=== PATIENT | female | born 1970 | race Caucasian/White ===

== ENCOUNTER 2019-07-11 23:21 | Emergency (ER) | payer BC, SELFPAY ==
[2019-07-11 23:22] VITALS: BP 161/112; PULSE 90; RESP 16; TEMP 36.7; O2SAT 96; BMI 30.5
--- NOTE | 2019-07-12 00:48 | ED.VIS.GEN ---
History of Present Illness Chief Complaint: Rash Narrative: Patient is a 49-year-old female who presents with a rash. It began today. She has a red raised pruritic rash on her neck and extremities. She was seen at an outside hospital earlier today told she was having allergic reaction and prescribed prednisone and Pepcid. She states her symptoms of worsened. No chest pain shortness of breath nausea vomiting. She cannot identify any new exposures to foods, lotions, detergents, medications. Past Medical History - Allergies and Home Meds Allergies/Adverse Reactions: Allergies No Known Allergies Allergy (Verified 07/11/19 23:25) Primary Care Physician: NOT,DEFINED [Primary Care Provider] - Past Medical History: None Smoking Status: Current every day smoker Review of Systems All systems negative except as indicated General: Denies: Fever Cardiovascular: Denies: Chest pain Respiratory: Denies: Dyspnea Gastrointestinal: Denies: Nausea, Vomiting Skin: Reports: Rash Physical Exam Vital Signs/Narrative: Vital Signs Temp Pulse Resp BP Pulse Ox 07/11/19 23:22 98.0 F 90 16 161/112 H 96 Inital Vital Signs reviewed: Yes General: Well nourished Head: Normocephalic Eyes: EOMI ENT: Moist mucous membranes Neck: Supple Cardiovascular: Regular rate Respiratory: No distress Skin: - - Urticaria Neurological: Alert Psychological: Normal affect Diagnostic/Tx/Re-eval - Medical Decision Making Patient presents with urticaria. She was only prescribed 40 mg of prednisone. We will increase this to 60. She was also given Benadryl here. She was advised to follow-up as an outpatient. She understands to return for new or worsening symptoms. She was discharged. ED Disposition - Plan for ED Patient: Disposition: Home or Assisted Living Diagnosis: Urticaria Instructions: Hives Prescriptions: predniSONE tablet 60 mg PO DAILY #15 tab Prescription Printed Referrals: NOT,DEFINED [Primary Care Provider] -
[2019-07-12] MEDS: predniSONE 20 MG Tablet PO (01:01)
[2019-07-12] MEDS: DiphenhydrAMINE 25 MG Capsule 50 MG PO (01:01)
[2019-07-12 01:25] VITALS: BP 151/101; PULSE 94; RESP 16; O2SAT 97
== END 2019-07-12 01:31 | disposition home or self-care (01) ==
LOC: ED 07-12 01:08
PROVIDERS: Emergency Provider Emergency Medicine
DX: L50.9 Urticaria, unspecified (principal); F17.200 Nicotine dependence, unspecified, uncomplicated
CPT/HCPCS: 99283

== ENCOUNTER 2019-07-16 20:00 | Emergency (ER) | payer BC, SELFPAY ==
[2019-07-16 20:01] VITALS: BP 155/81; PULSE 79; RESP 18; TEMP 36.4; O2SAT 97; BMI 47.8
--- NOTE | 2019-07-16 20:54 | ED.DCSUM_ITS ---
- ER Visit Summary Date of Service: 07/16/19 Chief Complaint: Rash History of Present Illness: The patient is a 49 F with a rash to her body and arms. She was treated with prednisone, Pepcid, and Benadryl. She is not improving. She does not have a PCP currently. She is not sure, but thinks she was exposed to something at work. No fever or systemic symptoms. No significant past medical history. Physical Examination: Patient has erythematous wheals to her arms, body, neck. No skin peeling or necrosis. Mucous membranes normal. Eyes normal. Afebrile and vital signs unremarkable. Test Results: None indicated Emergency Department Course and Treatment: Patient has urticaria. I am not sure what is causing her reaction. Will treat with additional steroids. Continue Benadryl and Pepcid. She was advised that she may need biopsy or testing for systemic disease if she has any other new symptoms or abnormal findings. We will refer her for primary care follow-up. Return for any new or worsening issues. Treatment Plan: As above Disposition: Discharge Impression: 1. Urticaria This note was generated with [employer]zzle dictation software. It may contain incorrect words, spelling, and punctuation that were not noted in review of the chart prior to signing ED Disposition - Plan for ED Patient: Disposition: Home or Assisted Living Instructions: [place] Prescriptions: MethylPREDNISolone DosePak [Medrol DosePak] 4 mg PO UD #1 box Prescription Printed Referrals: Julissa Galindo [NON-STAFF] -
[2019-07-16 21:16] VITALS: RESP 16
== END 2019-07-16 21:17 | disposition home or self-care (01) ==
LOC: ED 20:25
PROVIDERS: Emergency Provider Emergency Medicine
DX: L50.9 Urticaria, unspecified (principal)
CPT/HCPCS: 99282

== ENCOUNTER 2019-07-17 03:00 | Emergency (ER) | payer BC, SELFPAY ==
[2019-07-16 20:01] VITALS: BMI 47.8
[2019-07-17 03:01] VITALS: BP 163/98; PULSE 109; RESP 18; TEMP 36.7; O2SAT 98; BMI 48.8
--- NOTE | 2019-07-17 03:17 | ED.VIS.GEN ---
History of Present Illness Chief Complaint: Complaint Narrative: Patient is a 49-year-old female who presents with dysuria and urinary frequency and urgency. The symptoms just began tonight. She has recently been seen multiple times for urticaria of uncertain etiology and has been treated with steroids and antihistamines. She denies any fevers vomiting abdominal pain. Past Medical History - Allergies and Home Meds Allergies/Adverse Reactions: Allergies No Known Allergies Allergy (Verified 07/17/19 03:01) Primary Care Physician: Care Physician,No Primary [Primary Care Provider] - Past Medical History: None Smoking Status: Never smoker Review of Systems All systems negative except as indicated General: Denies: Fever Cardiovascular: Denies: Chest pain Respiratory: Denies: Dyspnea Gastrointestinal: Denies: Vomiting Genitourinary: Reports: Dysuria, Frequency Skin: Reports: Rash Physical Exam Vital Signs/Narrative: Vital Signs Temp Pulse Resp BP Pulse Ox 07/17/19 03:01 98.0 F 109 H 18 163/98 H 98 Inital Vital Signs reviewed: Yes General: Well nourished Head: Normocephalic Eyes: EOMI ENT: Moist mucous membranes Neck: Supple Cardiovascular: - - Heart is regular tachycardia Respiratory: No distress, CTA bilaterally Abdomen: Soft, Nontender Skin: Rash - Urticarial Neurological: Alert Psychological: - - Anxious Diagnostic/Tx/Re-eval Laboratory Results 07/17/19 03:12 Urine Color Yellow Urine Clarity Sl. Cloudy Urine pH 6.0 Ur Specific [place] 1.015 Urine Protein 15 H Urine Glucose (UA) Normal Urine Ketones Negative Urine Occult Blood 250 H Urine Nitrite Positive H Urine Bilirubin Negative Urine Urobilinogen Normal Ur Leukocyte Esterase 500 H Urine RBC 0-5 SEEN Urine WBC 25-50 SEEN Ur Squamous Epith Cells 0-5 SEEN Urine Bacteria 2+ Urine Mucus 0 SEEN - Medical Decision Making UA as above is consistent with cystitis. Patient was treated with Bactrim and given first dose here. I also added on a culture. Patient advised to follow-up as an outpatient otherwise to return for new or worsening symptoms and was discharged home. ED Disposition - Plan for ED Patient: Disposition: Home or Assisted Living Diagnosis: Cystitis Instructions: Bladder Infection, Female (Adult) Prescriptions: Smz/Tmp Ds [Bactrim Ds] 1 tab PO BID #5 tab Prescription Printed Referrals: Care Physician,No Primary [Primary Care Provider] -
[2019-07-17 03:19] LABS: Color, Urine Yellow (Yellow); Glucose, Dipstick Normal (Normal); Ketone-Dipstick Negative (Negative); Leukocyte Esterase-Dipstick 500 /ul (Negative); Nitrite-Dipstick Positive (Negative); Occult Blood-Urine 250 /ul (Negative); Protein-Dipstick 15 mg/dl (Negative); Specific Gravity, Urine 1.015 (1.002-1.030); Urine Bilirubin Dipstick Negative (Negative); Urine Clarity Sl. Cloudy (Clear); Urine Urobilinogen Normal (Normal)
[2019-07-17 03:20] LABS: Mucous, Urine 0 SEEN /hpf (<or=2+)
[2019-07-17 03:25] LABS: White Blood Cells 25-50 SEEN /hpf (0-5)
[2019-07-17 03:26] LABS: Bacteria 2+ /hpf (None Seen); Red Blood Cells-Urine 0-5 SEEN /hpf (0-5); Squamous Epithelial Cells - UA 0-5 SEEN /hpf (5-10)
[2019-07-17] MEDS: Smz/Tmp Ds Tablet 1 TABLET PO (03:37)
[2019-07-17 03:43] VITALS: RESP 16
== END 2019-07-17 03:44 | disposition home or self-care (01) ==
PROVIDERS: Emergency Provider Emergency Medicine
DX: N30.90 Cystitis, unspecified without hematuria (principal)
CPT/HCPCS: 81001; 87086; 87088; 87186; 99283

== ENCOUNTER 2020-01-23 05:51 | Emergency (ER) | payer OTHER, SELFPAY ==
[2020-01-23 05:52] VITALS: BP 156/87; PULSE 112; RESP 16; TEMP 36.8; O2SAT 96; BMI 49.4
--- NOTE | 2020-01-23 06:40 | ED.DCSUM_ITS ---
History of Present Illness Chief Complaint: Allergic Reaction Informant: Patient Onset: Yesterday Context: Gradual Onset Timing: Intermittent Quality: pruritic, swollen, red. not painful. Location: back, neck, shoulders, chest, arms, thighs Current Severity: Moderate Maximum Severity: Moderate Worsened by: nothing Relieved by: bendaryl, some Narrative: Patient started getting urticaria yesterday, the eased off and then returned this morning. She thought that since they were coming towards the front of her neck that might give her trouble breathing although she has not had any so she came to the ER. She has had unexplained urticaria off and on since July of last year. She does not know what she is reacting to. She takes no prescriptions and has had no recent [id number] medications. No new topicals. No new soaps or shampoos. Past Medical History - Allergies and Home Meds Allergies/Adverse Reactions: Allergies No Known Allergies Allergy (Verified 01/23/20 05:55) Primary Care Physician: Ravinder Carty MD [Primary Care Provider] - Past Medical History: None Smoking Status: Current every day smoker Review of Systems General: Denies: Chills, Fever, Sweats Eyes: Denies: Visual changes - bilaterally, Diplopia ENT: Denies: Bilateral ear pain, Rhinorrhea, Sore throat Cardiovascular: Denies: Chest pain, Palpitations Respiratory: Denies: Dyspnea, Cough, Dyspnea on exertion, Orthopnea Gastrointestinal: Denies: Abdominal pain, Nausea, Vomiting, Diarrhea, Melena, Hematochezia Genitourinary: Denies: Dysuria, Hematuria, Frequency Musculoskeletal: Denies: Neck pain, Back pain, Extremity Pain Skin: Reports: Rash. Denies: Wounds Neurological: Denies: Headache, Weakness, Numbness Physical Exam Vital Signs/Narrative: Vital Signs Temp Pulse Resp BP Pulse Ox 01/23/20 05:52 98.2 F 112 H 16 156/87 H 96 Inital Vital Signs reviewed: Yes General: Well nourished, Well developed, Obese, No Acute Distress Head: Normocephalic, Atraumatic Eyes: Perrl, EOMI ENT: Moist mucous membranes, No rhinorrhea Neck: Supple, Nontender, No lymphadenopathy Cardiovascular: Regular rate, Regular rhythm, No murmurs Respiratory: No distress, CTA bilaterally, Chest nontender. Negative for: Wheezing Extremities: Nontender, No edema Skin: Normal color, Rash - scattered urticaria, mostly on back and shoulders, large; few on chest and UEs, smaller. not target lesions. nontender. no petechiae/purpura. Neurological: Alert, Oriented x3, Cranial nerves II-XII grossly intact, Normal Strength, Normal Sensation, Normal Gait Psychological: Normal affect, Normal Mood Diagnostic/Tx/Re-eval - Medical Decision Making Her lungs are clear and her exam is benign except for the urticaria. She has no stridor and her posterior oropharynx is clear. No signs of edema. Normal vital signs, no signs of anaphylaxis. Will place her on prednisone and advised that she follow-up with her doctor as that since she has been having episodes in July she may need referral to an intelligent systems engineer. ED Disposition - Plan for ED Patient: Disposition: Home or Assisted Living Diagnosis: Allergic urticaria Instructions: ALLERGIC REACTION, Other (General) Prescriptions: Prednisone 10 mg PO UD #33 tab Prescription Printed Referrals: Ravinder Carty MD [Primary Care Provider] - 1-2 Weeks
[2020-01-23] MEDS: predniSONE 20 MG Tablet 40 MG PO (06:52)
[2020-01-23 06:53] VITALS: BP 148/69; PULSE 90; RESP 18; O2SAT 97
== END 2020-01-23 06:54 | disposition home or self-care (01) ==
PROVIDERS: Emergency Provider Emergency Medicine; PCP Family Medicine
DX: L50.0 Allergic urticaria (principal); F17.200 Nicotine dependence, unspecified, uncomplicated; E66.9 Obesity, unspecified
CPT/HCPCS: 99283

== ENCOUNTER 2022-11-14 08:59 | Day surgery (SDC) | payer OTHER, SELFPAY ==
[2022-11-14] VITALS (8 sets, daily range): BP systolic 111–164; BP diastolic 75–92; PULSE 63–96; RESP 16–18; TEMP 36.6–37.1; O2SAT 93–100; BMI 48.1
--- NOTE | 2022-11-14 | AXNB_PTH ---
PATIENT: CECILY DASH LOC: [facility] [place] U#:[id number] AGE/SX: 52/F ROOM: RE11/14/[address]: Dr. Olga Arora MD : 1970 BED: DIS: 11/14/2022 SPEC #: [id number] RECD: 11/14/22 13:14 STATUS: DENISE RE #: [id number] NICANOR: 11/14/22 00:[address]: Olga Arora DEPT: SURGICAL PATHOLOGY RECD BY: Gardenia Pittman Tissues: A - Axillary lymph node, NOS B - Left breast, NOS C - Left breast, NOS Procedures: Frozen Section (charge) Frozen Section Add'l ([facility]) Surgery Specimen Level IV Surgery Specimen Level V HEADER OPERATION: Left breast lumpectomy via wire localization, sentinel lymph node biopsy, frozen section PRE-OP DIAGNOSIS: Left breast cancer TISSUE SUBMITTED: A - [place] lymph nodes left breast, FS, B - Left breast mass, two short sutures - anterior border, one long suture - posterior border, wire - lateral, C - Additional left breast mass - medial margin - suture hall tumor FROZEN SECTION DIAGNOSIS A. Left sentinel lymph nodes, biopsy: Five out of six lymph nodes, positive for metastatic carcinoma. : 11/14/2022 MICROSCOPIC DIAGNOSIS A. Left breast sentinel lymph nodes, biopsy: Five out of six lymph nodes, positive for metastatic carcinoma. See comment. B. Left breast mass, lumpectomy with needle localization: Invasive ductal carcinoma. See cancer summary in comment section. C. Additional left breast mass, medial margin: Negative for carcinoma. :jose 11/21/2022 COMMENT A. The largest focus of metastasis measures 2.5 cm in greatest dimension. Focal extranodal extension is noted measuring 0.3 cm in greatest dimension. One lymph node (block # 6, 16-18)) is negative for metastatic carcinoma immunohistochemical stains for cytokeratins ([id number]). B. INVASIVE BREAST CANCER SUMMARY: Procedure - excision with needle localization Specimen laterality - left Tumor site ? not specified Tumor size ? 3.5 x 3.5 x 2.5 cm Histologic type - invasive ductal carcinoma, no special type. Histologic Grade (Eudora grade): Glandular/tubular differentiation - score 3 Nuclear pleomorphism - score 3 Mitotic count ? score 3 Overall grade - 3 (score of 9) Tumor Focality - single focus of invasive carcinoma. 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 Size (extensive of DCIS) ? DCIS comprises <1% of the total tumor volume. Number of blocks with DCIS ? 1 Number of blocks examined ? 20 (specimen B & C) Architectural pattern - solid Nuclear grade ? grade 3 (high) Necrosis ? not present Lobular carcinoma in situ (LCIS) ? not identified Tumor extension: Skin ? skin is present and uninvolved. Nipple ? not applicable Skeletal muscle ? no skeletal muscle present. Margins: Invasive carcinoma margin ? uninvolved by invasive carcinoma. The tumor is 0.8 cm away from the closest medial margin in lumpectomy specimen and additional specimen medial margin measures 1.5 cm which is negative for carcinoma. Ductal carcinoma in situ margin ? cannot be assessed as it is present in the contact center representative section. Margins are free of DCIS. Regional Lymph nodes: Total number of lymph nodes examined - 6 Number of sentinel lymph nodes examined - 6 Number of lymph nodes with macrometastases - 5 Number of lymph nodes with micrometastases and isolated tumor cells - 0 Size of largest metastatic deposit ? 2.5 cm Extranodal extension ? present, about 3 mm Treatment effect - no known presurgical therapy. Lymphvascular invasion ? not identified Dermal lymphvascular invasion - not identified Distant metastasis ? not applicable Additional pathologic findings ? fibrocystic changes and intraductal hyperplasia without atypia. Ancillary studies - previously performed at [facility] [place] ([id number]). ER ? positive (91-100%, strong intensity) [place] ? positive (71-80%, weak to moderate intensity) Her2 pete ? negative (0) Ki- 67 ? positive (45%) ([id number]) Microcalcifications ? not identified Clinical history - Please make reference to previous specimens from [facility] [place] ([id number]) left breast, core biopsy with diagnosis of ?invasive ductal carcinoma with associated marked lymphocytic infiltrates? and ([id number]) left axillary lymph node, biopsy with diagnosis of ?metastatic carcinoma involving lymph node, consistent with a breast primary.? PATHOLOGIC STAGE: pT2 pN2a pMx The above summary is in compliance with [employer] (CAP) Cancer Protocols Checklist and [place] Joint Committee on Cancer (AJCC), Staging Manual, 8th Ed. Case has been reviewed in consultation with Dr. Clinton who concurs with the above diagnosis. IDC:AM MICROSCOPIC DESCRIPTION Slides are reviewed. GROSS DESCRIPTION A - Received fresh for frozen section diagnosis labeled with the patient's name is a specimen designated left sentinel lymph node. The specimen consists of multiple pieces of dalton nodule that in aggregate measure 6 x 6 x 2.5 cm. Six nodules consistent with lymph nodes are identified. The largest lymph node measures 3 cm in greatest dimension. One section from each lymph node are submitted for frozen section diagnosis in one cassette. The rest of the lymph node tissue is submitted as follows: 7 - rest of the specimen from #1 lymph node, 8 - rest of the lymph node from #2 lymph node, 9 & 10 - rest of the lymph node from #3 lymph node, 11 & 12 - rest of the lymph node from #4 lymph node, 13-15 - rest of the lymph node from #5 lymph node, 16-18 - rest of the lymph node from #6 lymph node. / WALLACE:jose 11/14/2022 B - Received fresh for intraoperative consultation labeled with the patient's name is a specimen designated left breast mass. The specimen consists of a piece of fibroadipose tissue with needle localization measuring 8 x 7 x 6 cm. A piece of skin is noted laterally measuring 2 x 0.2 cm. The specimen is oriented as follows: two short sutures - anterior border, one long suture - posterior border, wire - lateral. The specimen is inked as follows: anterior - yellow, posterior - black, superior - blue, inferior - green, medial - red and lateral - orange. Serial sections reveal a dalton, indurated tumor mass measuring 3.5 x 3.5 x 2.5 cm. This mass is 0.8 cm away from the medial margin. This information is conveyed to the surgeon intraoperatively. Sections of the rest of the specimen reveal dalton-yellow adipose cut surfaces mixed with dalton-white fibrous areas. Assistant Teacher Primary sections are submitted in 12 cassettes as follows: 1 - perpendicular anterior, posterior and superior margin, 2 - perpendicular lateral margin including skin and perpendicular inferior margin, 3 - perpendicular medial margin, 4-7 - tumor, 8-12 - Assistant Teacher Primary sections adjacent to and away from the tumor. Sections are submitted after additional fixation. Jose 11/15/2022 C - Received in fixative is one container labeled with the patient's name and designated additional left breast mass, medial margin. The specimen consists of a piece of fibroadipose tissue measuring 4.5 x 4 x 1.5 cm. A suture is noted marking tumor. Suture surface is inked black and opposite surface is inked blue. No mass lesion is identified. The specimen is submitted in eight cassettes from one end to another end. / Jose 11/15/2022 TC:0 CPT: 23907 x2, 61756, 37469, 59661 x5
--- NOTE | 2022-11-14 | IMM_PTH ---
PATIENT: CECILY DASH LOC: [facility] – [place] U#:[id number] AGE/SX: 52/F ROOM: RE11/14/[address]: Dr. Olga Arora MD : 1970 BED: DIS: 11/14/2022 SPEC #: [id number] RECD: 11/17/22 12:43 STATUS: DENISE REQ #: [id number] NICANOR: 11/14/22 00:[address]: Olga Arora DEPT: IMMUNOHISTOCHEMISTRY RECD BY: Gardenia Pittman Tissues: A - Axillary lymph node, NOS B - Left breast, NOS Procedures: CK7 (add) Pankeratin (initial) Pankeratin (add) KI-67 (initial) PHYSICIAN & INSTITUTION [place] [id number] SPECIMEN INFORMATION: Tissue Source: A ? Left sentinel lymph nodes, B - Left breast mass, lumpectomy with needle localization Clinical Info: Left breast cancer Specimen Number: [id number] A6, A16, A17 & A18, B5 CPT code: 58791 x2, 90101 x7 METHODOLOGY: Deparaffinized sections of prefer/formalin-fixed tissue or PAP/DQ stained slides are incubated with monoclonal/polyclonal antibodies/oligonucleotide probes. Localization is made via biotin free immunoperoxidase method. Appropriate controls are performed and reacted as expected. Results on target cell population are indicated in the following table: RESULTS: ANTIBODY / CLONE RESULT Block A6 AE1-3 (AE1/AE3/PCK26) negative CK7 (OV-TL12/30) negative Block A16 AE1-3 (AE1/AE3/PCK26) negative CK7 (OV-TL12/30) negative Block A17 AE1-3 (AE1/AE3/PCK26) negative CK7 (OV-TL12/30) negative Block A18 AE1-3 (AE1/AE3/PCK26) negative CK7 (OV-TL12/30) negative Block B5 Ki-67 (30-9) positive, ~45% These tests were developed and their performance characteristics determined by [facility]. They may not have been cleared or approved by the U.S. Food and Drug Administration. The FDA has determined that such clearance or approval is not necessary. The above immunohistochemical/dualISH markers are ordered and reviewed by the Pathologist. INTERPRETATION: A. Left sentinel lymph nodes, biopsy: One lymph node, negative for metastatic carcinoma. B. Left breast mass, lumpectomy with needle localization: Invasive ductal carcinoma. SJ:jose 11/21/2022
--- NOTE | 2022-11-14 09:15 | NM_ITS ---
PROCEDURE: NUCLEAR MEDICINE Injection Nelson Node - LEFT breast(s). REASON FOR EXAM: Female, 52 years old. Left breast cancer. TECHNIQUE: Nelson node localization using radionuclide methods of the LEFT breast(s) was performed following subcutaneous administration of 1.1 mCi of of sulfur colloid Tc-99m. FINDINGS: 1.1 mCi of senior wind turbine technician labeled sulfur colloid was injected subcutaneously in the periareolar region in 4 equal aliquots. NM/Lymph Node Injection Only IMPRESSION: 1.1 mCi of technetium labeled sulfur colloid was injected subcutaneously in the periareolar region in 4 equal aliquots for sentinel node imaging. Electronically Signed: Hayden Sue MD at 14:50 EST ,
[2022-11-14] MEDS: Lactated Ringers 1,000 ML 15 ML IV (09:22)
--- NOTE | 2022-11-14 11:28 | BI_ITS ---
SURGICAL BREAST SPECIMEN RADIOGRAPH CLINICAL: Document presence of mass in biopsy specimen. FINDINGS: Specimen shows presence of mass. Electronically Signed: Hayden Sue MD at 14:49 EST , BI/Breast Biopsy Specimen IMPRESSION: undefined
--- NOTE | 2022-11-14 12:07 | OP.PCM_ITS ---
Report of Operation Date of Procedure: 11/14/22 Pre-Operative Diagnosis: left breast cancer Post-Operative Diagnosis: same Surgery/Procedure Performed:: left breast lumpectomy, left axillary lymph node dissection Description of Surgical Findings:: multiple large palpable lymph nodes of left axilla Surgeon: Olga Arora Type of Anesthesia: General Anesthesiologist: Roshni Haddad Specimen's removed: left breast lumpectomy, left axillary lymph giovanny tissue Drains: none Estimated Blood Loss (mL): 150 Fluids Replaced: 1300 ml RL Description of Procedure: After informed consent was given, the patient was brought into the Breast Stereotactic Radiology suite. Appropriate time out protocol was followed. The patient was then placed in the prone position on the Dunn stereotactic table. The patient?s left breast was placed in the opening at the head of the table. A mash tub cooker operator compression mammogram was then obtained in the lateral view. The marker clip that was previously placed was identified. Stereo pictures of the lesion were then taken for XYZ coordinates. The Kopans needle was then positioned where it would be entering into the patient?s breast. The skin at this site was then cleansed with a surgical skin preparation. The skin and subcutaneous tissues at this site were then infiltrated with 1% xylocaine. The Kopans needle was then positioned into the patient?s breast at the proper coordinates of depth. A mash tub cooker operator film was obtained which revealed the wire in proper position. The patient was then placed in the supine position and the wire was taped into place. A unilateral mammogram in the CC and MLO view were then taken for use in the OR. The patient tolerated this portion of the procedure well and was brought to the AC awaiting surgery in the OR. Element Response Options Operation performed with curative intent. No. Tracer(s) used to identify sentinel nodes in the upfront surgery (non- neoadjuvant) setting (select all that apply). lymphozurin dye, radioactive tracer All nodes (colored or non-colored) present at the end of a dye-filled lymphatic channel were removed. yes All significantly radioactive nodes were removed. yes All palpably suspicious nodes were removed.yes Biopsy-proven positive nodes marked with clips prior to chemotherapy were identified and removed. yes The patient was then brought to the Operating Room. Appropriate time out protocol was followed. The patient was then placed on the operating table in the supine position. A wire had already been placed in the stereotactic biopsy room in the radiology department as described above. The patient had radioactive isotope injected earlier this day by the radiologist for radioactive tracer tracking. After the patient was placed under general anesthesia by the anesthesia provider, the periareolar subcutaneous tissues of the left breast were infiltrated with lymhazurin blue dye - diluted to a 50:50 mixture with saline - total of 3 ml used, using a 25G needle. Gentle massage was then done for a few minutes. The left breast with the wire in placed and the torso was then prepped with a sterile surgical skin preparation and sterile surgical drapes were placed. The Neoprobe device was brought into the operative field. A skin incision was made in the inferior portion of the hair bearing area of the left axilla. It was carried through to the subcutaneous tissues using electrocautery. Any hemorrhage was controlled with electrocautery. A Weitlaner retractor was used for increased operative exposure. The Neoprobe 10 second count over the tumor bed was 1610. The 10 second count over the abdominal area was 2. The 10 second count over the axilla was 131. Blunt dissection was conducted into the soft tissues of the axilla and to fully enter into the axillary fossa. The blue lymphatic vessels were then followed by the blunt dissection until blue colored lymph giovanny tissues was identified. However, there were large palpable lymph nodes that were noted in this area. The axillary vein was identified. Dissection was then continued inferior to the vein, ligating lymphatic vessels and small blood vessels with hemoclips. Dissection was continued laterally until the thoracodorsal bundle was identified. The axillary giovanny tissue was then carefully from this bundle and the bundle placed back into its proper position. The axillary giovanny tissue was retracted anteriorly and medi ally until the long thoracic nerve and vessels were identified. The axillary giovanny tissue was then from the surrounding fatty tissue. Ligaclips were used to ligate the vessels. This lymph giovanny tissue was from the surrounding tissue by blunt dissection and the vascular pedicles ligated with ligaclips. The Neoprobe 10 second count of the lymph giovanny tissue was 127. The lymph giovanny tissue was then forwarded to pathology for frozen section. Pathology revealed that multiple lymph nodes found and were positive for metastatic disease. Careful examination was done in the axilla, no further palpable masses were noted in the axilla. No further blue colored tissue was noted in the axilla. The 10 second Neoprobe count in the axilla was 4. Hemostasis was carefully controlled by electrocautery. The axilla was carefully examined and no bleeding was noted. Kassy was applied to the axillary cavity. The deep tissues were reapproximated with 2-0 vicryl sutures. The subdermal tissues were approximated with 3-0 vicryl suture. The skin was reapproximated using 4-0 monocryl in a subcuticular fashion. Cavilon and steristrips were then placed to reinforce the skin closure and proper sterile dressings were applied. The skin and subcutaneous tissues at the site of the left breast wire placement was then infiltrated with 1% xylocaine with epinephrine. A transverse curvilinear skin incision was then made at the wire entrance site with a 15 blade scalpel - lateral aspect of left breast - and carried down through to the subcutaneous tissues. Hemostasis was controlled with electrocautery. The breast tissue surrounding the wire was then carefully palpated out and from the surrounding tissues using electrocautery. The breast tissue, once from the breast, was then forwarded to the radiology department, where a specimen mammogram revealed that the marker clip was within the specimen. The breast tissue was then forwarded to pathology for analysis. Pathology review revealed that the closest margin was medial with a measurement of 8 mm. This was indicated by the pathologist via frozen section. Additional breast tissue was therefore excised from the medial margin. The wound cavity was carefully examined. No further suspicious tissue was palpated or visualized. Hemostasis was carefully controlled with electrocautery. The subdermal tissues were then approximated with vicryl suture. The incision was then reapproximated close using running monocryl suture. Cavilon and steristrips were then placed to reinforce the skin closure. Sponge, needle, and instrument count were verified and correct at the time of skin closure. A sterile dressing was then applied. The patient was then brought to the Recovery Room in stable condition. Complications none noted Admit VTE Documentation VTE Present on Admission: Yes VTE Mechan Device Prophylaxis: SCD's
[2022-11-14] MEDS: Bupiv/Epi 0.5% Mpf 30 ML Vial (12:12)
[2022-11-14] MEDS: Isosulfan Blue 1% 5 ML Vial (12:35)
[2022-11-14] MEDS: 0.9% Normal Saline (Pres. free 10 ML Vial (12:35)
--- NOTE | 2022-11-16 19:37 | HP.PCM_ITS ---
History and Physical Date of Admission: 11/14/22 HISTORY AND PHYSICAL ? Bethany Jones 1970 ? ? REFERRING PHYSICIAN:? ?Jose Macdonald MD ? CHIEF COMPLAINT:? ?Consult (Port placement??)? ? HPI: The patient is a 52 year old female presents with left UOQ breast cancer, ER positive, axillary lymph node positive. She had been referred to multiple oncologists who have recommended chemotherapy. Patient refuses chemotherapy. She feels that chemotherapy won't work and that it creates an acid imbalance and that acid upsets normal organs and she feels like she is signing a warrant <if she takes chemotherapy> She states that she is trying changes in diet, such as more alkaline foods. She is amenable to surgery and radiation therapy. ?? PAST MEDICAL HISTORY ?Breast cancer (HCC)? ?left ?Hives? PAST SURGICAL HISTORY ?BX OF BREAST; [id number]/24/2022 ?ultrasound guided breast bx ? SECTION HX ? ? ? Current Outpatient Medications ?ergocalciferol 50,000 unit capsule (VITAMIN D2, DRISDOL)Take 1 capsule by mouth two times a week. ?lidocaine-prilocaine (EMLA) 2.5-2.5 % creamApply 1 application to affected area as needed. (Patient not taking: Reported on 10/11/2022) ?metoclopramide HCl (REGLAN) 10 mg tabletTake 1 tablet by mouth three times daily as needed (nausea and vomitting). (Patient not taking: Reported on 10/11/2022) ? ? ALLERGIES: Patient has no known allergies. ? PERSONAL HISTORY:? Social History ?Tobacco Use ?Smoking status:Former ? Packs/day:1.00 ? Years:20.00 ? Pack years:20.00 ? Types:Cigarettes ? Quit date:04/11/2022 ? Years since quittin.5 ?Smokeless tobacco:Never ?Tobacco comments: ? intermittent, quit for 5 and then 10 years at a time? Vaping Use ?Vaping Use:Never used Substance Use Topics ?Alcohol use:Not Currently ? Comment: rare ?Drug use:Never ?? ? FAMILY HISTORY? ?No Known ProblemsMother? ?CancerFather? blood? ?HypertensionFather? ?GlaucomaFather? ?DiabetesFather? ?Heart diseaseFather? ?No Known ProblemsSister? ?No Known ProblemsSister? ?MelanomaMaternal Grandmother? ?No Known ProblemsSon? ?No Known ProblemsSon? ? ? The review of systems data was entered by the nurse and reviewed by me ? Nursing Notes:? Virgie Jones LPN? ? REVIEW OF SYSTEMS: ? ? ?General:? ?The patient denies fatigue, denies weight loss, denies weight gain, denies feeling hot, and denies feelings of cold. ? ? ?Eyes:? The patient denies glaucoma, denies eye injury/surgery, wears glasses or contacts. ? ? ?Ear/Nose/Throat:? The patient notes allergies, denies hayfever, denies ear infections, and denies bloody noses. ? ? ?Cardiovascular:? The patient denies chest pain, denies heart disease, denies high blood pressure,denies cardiac stent, denies prior heart attack, denies irregular heart beat, denies high cholesterol,? denies poor circulation, denies heart failure, other cardiac issues, denies claudication, denies cold feet, denies peripheral arterial stent. ? ? ?Respiratory:? The patient denies tuberculosis, denies pneumonia, denies frequent cough, denies pulmonary embolism, denies shortness of breath, and denies coughing up blood. ? ? ?Gastrointestinal:? The patient denies difficulty swallowing, denies acid reflux, denies ulcers, denies vomiting, denies jaundice/hepatitis, denies gallbladder problems, denies black or tarry stools, denies hemorrhoids, denies bleeding from rectum, denies diverticulitis, denies constipation, denies diarrhea, denies loss of stool control, and denies hernias. ? ? ?Kidney/Bladder:? The patient denies kidney stones, denies urine infections, and denies bloody urine. ? ? ?Skin:? The patient denies a history of skin cancer, denies bleeding/changing moles, and denies a history of skin rash. ? ? ?Neurologic:? The patient denies a history of epilepsy/convulsions, denies headaches, denies head/spinal injuries, and denies stroke/TIA. ? ? ?Psychiatric:? The patient denies psychiatric medications, denies depression, and denies voices, denies substance abuse. ? ? ?Endocrine:? The patient denies thyroid disorders, denies diabetes, and denies hormonal problems. ? ? ?Hematologic:? The patient denies a history of bruising, denies bleeding, and denies anemia, denies blood clots. ? ? ?Infections:? The patient denies a history of measles and mumps, denies rheumatic fever, and denies sexually transmitted diseases. ? ? ?Musculoskeletal:? The patient denies back pain/injury, notes back problems, denies sciatica, denies knee/foot trouble, denies arthritis, or denies gout. When was patient's last Mammogram screening? 2021?Last Colonoscopy:? none Virgie JonesROSY ? ? ? PHYSICAL EXAMINATION: ? General:? The patient is 52 year old female, well nourished, well hydrated in no acute distress.? The patient is oriented to time, place, and person. ? VITALS: Blood pressure 144/88, pulse 72, temperature 36.7 ?C (98 ?F), height 162.6 cm (5' 4), weight 129.7 kg (286 lb), SpO2 97 %. Body mass index is 49.09 kg/m?.? ? Head ? Normocephalic. EOM intact with sclera clear and no icterus noted. . Neck - supple with no jugular venous distention noted. Trachea is midline. No thyroid enlargement or thyroid nodules detected. No masses noted. Chest/breast ? no asymmetry of breasts noted, no suspicious skin lesions noted, bilateral ptotic breasts, no nipple discharge and both nipples everted, palpable 3 cm mass of upper outer quadrant of left breast close to axilla about 10 cm from nipple Lungs ? clear to auscultation. Normal breath sounds. No rales/rhonchi/wheezing noted. No labored breathing noted, such as retractions. No cough heard. Heart ? normal S1 and S2 auscultated. No rubs/clicks/murmurs noted. Regular rate. Abdomen ? soft and benign. Difficult to determine if any masses or organomegaly due to body habitus. Extremities ? bilateral dependent lower extremity swelling, no calf tenderness noted. No pitting edema noted.? Skin ? normal skin integrity. Lymph ? no cervical adenopathy detected, no supraclavicular adenopathy detected, no axillary adenopathy detected Neurological ? gait normal, no focal deficits noted Psych ? calm and appropriate? IMPRESSION: left breast cancer with lymph node positive - patient refuses chemotherapy ? PLAN:? ?I have discussed the above with the patient. I have tried to convince patient of the benefits of chemotherapy. However, patient is adamantly against chemotherapy. I have therefore offered surgical treatment which she understands may not be curative given above. I have offered lumpectomy versus mastectomy and patient prefers former. I have explained the procedure to the patient. I have counseled the patient as to the risks of the procedure, including but not limited to: infection, bleeding, injury to any blood vessels/nerves, scar tissue, seroma, lymph leak, lymphedema wound infections, incomplete margins necessitating re- excisional surgery, complications of anesthesia, etc. ? the patient understands. The patient wishes to proceed. ? ? I have answered all questions to the patient?s satisfaction and the patient has no further questions. . Diagnoses: (C50.412,? Z17.0) Malignant neoplasm of upper-outer quadrant of left breast in female, estrogen receptor positive (HCC) (C77.9) Regional lymph node metastasis present (HCC)
== END 2022-11-14 17:27 | disposition home or self-care (01) ==
LOC: SDC 09:03 → AC 09:06
PROVIDERS: Referring Provider Surgery; Visit Provider Surgery
PROC: (CPT 19301; principal; 2022-11-14 11:15)
DX: C50.412 Malignant neoplasm of upper-outer quadrant of left female breast (principal); C77.3 Secondary and unspecified malignant neoplasm of axilla and upper limb lymph nodes; Z17.0 Estrogen receptor positive status [ER+]; F17.210 Nicotine dependence, cigarettes, uncomplicated
CPT/HCPCS: 19301; 38525; 00404; 38792; 19281; 76098; 88305; 88307; 88331; 88332; 88341; 88342; A9541; J7120; J2405; J3490; Q9968